=== PATIENT | female | born 1950 | race Two or more races ===

== ENCOUNTER 2019-04-06 10:48 | Outpatient (CLI) | payer OTHER | END 2019-04-06 11:14 | disposition home or self-care (01) | LOC: MAMO-SONO 10:48 | DX: Z12.31 Encounter for screening mammogram for malignant neoplasm of breast (principal); Z87.898 Personal history of other specified conditions; N64.4 Mastodynia; R92.8 Other abnormal and inconclusive findings on diagnostic imaging of breast; R92.0 Mammographic microcalcification found on diagnostic imaging of breast; N60.89 Other benign mammary dysplasias of unspecified breast; N63.10 Unspecified lump in the right breast, unspecified quadrant; N63.20 Unspecified lump in the left breast, unspecified quadrant; C50.919 Malignant neoplasm of unspecified site of unspecified female breast; N64.59 Other signs and symptoms in breast; D48.60 Neoplasm of uncertain behavior of unspecified breast ==